=== PATIENT | male | born 1985 | race Hispanic/Latino ===

== ENCOUNTER 2024-03-03 03:05 | Emergency (ER) | payer SELFPAY ==
[2024-03-03] MEDS ORDERED: fentaNYL 50 mcg/mL 1 mL Vial ONE ×2 (03:34→04:26)
[2024-03-03] MEDS ORDERED: Sodium Chloride 0.9% 1,000 ML ONE (03:35)
[2024-03-03] MEDS ORDERED: Ondansetron PF 4 MG/2 ML Vial ONE (03:35)
[2024-03-03 03:38] LABS: #Eosinophils 0.1 thou/uL (0.0-0.7); #Lymphocytes 3.2 thou/uL (1.20-3.40); #Monocytes 0.5 thou/uL (0.11-0.59); #Neutrophils 5.8 thou/uL (1.40-6.50); %Basophils 0.5 % (0.0-1.0); %Eosinophils 0.6 % (0.0-10.0); %Lymphocytes 33.4 % (21.0-51.0); %Monocytes 5.5 % (0.0-10.0); Hematocrit 46.7 % (42.0-52.0); Hemoglobin 15.4 g/dL (14.0-18.0); Mean Corpuscular HGB CONC 32.9 g/dL (32.0-36.0); Mean Corpuscular Hemoglobin 29.6 pg (27.0-31.0); Mean Platelet Volume 7.8 fL (7.4-10.4); Platelet Count 270 10x3/uL (130-400); RBC Distribution Width 11.7 % (11.5-14.5); Red Blood Cell (RBC) Count 5.19 mill/uL (4.70-6.10); White Blood Cell (WBC) Count 9.7 10x3/uL (4.8-10.8)
[2024-03-03 03:56] LABS: ALT (SGPT) 35 U/L (8-55); AST (SGOT) 18 U/L (5-34); Albumin 4.3 g/dL (3.5-5.0); Alkaline Phosphatase 86 U/L (40-110); Anion Gap 12 mmol/L (10-20); BUN (Urea Nitrogen) 14 mg/dL (8.9-20.6); Bilirubin, Total 0.6 mg/dL (0.2-1.2); Calc. Creatinine Clearance 0 mL/min (70-130); Calcium 9.7 mg/dL (7.8-10.44); Carbon Dioxide 28 mmol/L (22-29); Chloride 102 mmol/L (98-107); Estimated GFR 92; Globulin 4.7 g/dL (2.4-3.5); Glucose 127 mg/dL (70-105); Lipase 55 U/L (8-78); Potassium 3.9 mmol/L (3.5-5.1); Sodium 138 mmol/L (136-145)
[2024-03-03 04:27] LABS: Bilirubin Negative (Negative); Blood, Urine Negative (Negative); Clarity Clear (Clear); Glucose, Urine (Dipstick) Negative (Negative); Ketone, Urine Negative (Negative); Leukocyte Negative (Negative); Nitrite Negative (Negative); Protein, Urine (Dipstick) Negative (Neg-Trace); Specific Gravity, Urine 1.015 (1.005-1.030); Urobilinogen 0.2 mg/dL (Less than 2)
[2024-03-03] MEDS ORDERED: Promethazine HCl 25 MG/ML VIAL ONE (04:27)
[2024-03-03 04:33] LABS: Bacteria/HPF None Seen HPF (None Seen); CAUTI Indications for Culture Dysuria,urgency,freq; RBC/HPF None Seen HPF (0-3); Squamous Epithelial None Seen HPF (0-3); WBC/HPF None Seen HPF (0-3)
[2024-03-03 04:34] LABS: Urine Culture Reflex No No
[2024-03-03] MEDS ORDERED: HYDROmorphone 0.5 MG/0.5 ML SYRINGE ONE (05:34)
[2024-03-03] MEDS ORDERED: Iopamidol 370 76% 100 ML VIAL ONE (09:00)
== END 2024-03-03 07:01 | disposition short-term general hospital (02) ==
LOC: NAV ERS 03:05
DX: R10.9 Unspecified abdominal pain (principal); R11.2 Nausea with vomiting, unspecified
CPT/HCPCS: 74177; 80053; 81001; 83690; 85025; 96361; 96365; 96375; 96376; J2405; J2550; J3010; J7030; Q9967